=== PATIENT | male | born 1950 | race Caucasian/White ===

== ENCOUNTER → 2018-01-03 | Outpatient (CLI) | payer OTHER ==
[~2018-01-03] MED LIST: PENTAMIDINE ISETHIONATE 300MG/6ML INH SYRINGE NEB ONE
== END ==
LOC: FCP 07:56
PROVIDERS: ATTEND Internal Medicine Hematology & Oncology
DX: Z79.899 Other long term (current) drug therapy (principal)
CPT/HCPCS: J2545

== ENCOUNTER → 2018-05-01 | Outpatient (CLI) | payer OTHER | LOC: FCP 09:12 | PROVIDERS: ATTEND Internal Medicine Hematology & Oncology | DX: Z79.899 Other long term (current) drug therapy (principal) | CPT/HCPCS: 94642; J2545 ==

== ENCOUNTER → 2018-05-30 | Outpatient (CLI) | payer OTHER | LOC: FCP 07:49 | PROVIDERS: ATTEND Internal Medicine Hematology & Oncology | DX: Z79.899 Other long term (current) drug therapy (principal) | CPT/HCPCS: 94642; J2545 ==